=== PATIENT | female | born 1950 | race Caucasian/White ===

== ENCOUNTER 2020-09-27 20:19 | Emergency (ER) | payer MEDICARE, BC ==
[2020-09-27 20:25] VITALS: BP 152/72; PULSE 87
[2020-09-27] MEDS ORDERED: Morphine 4 MG/ML Syringe IM ONE (20:49)
--- NOTE | 2020-09-27 20:49 | EDM.PDOC ---
ED HPI GENERAL MEDICAL PROBLEM - General Chief Complaint: Lower Extremity Injury/Pain Stated Complaint: fall Time Seen by Provider: 09/27/20 20:49 Source of Information: Reports: Patient History Limitations: Reports: No Limitations - History of Present Illness INITIAL COMMENTS - FREE TEXT/NARRATIVE: Patient comes emergency department today from home with complaints of a fall ri ght hand and hip pain. Just prior to arrival the patient was walking with flip- flops sandals on when she was trying to shoe something way with her foot when her flip-flop got stuck on the ground and she fell landing on her right hip and her right hand. She did not hit her head. She has no head neck or back pain. There was no loss of consciousness. It is too painful for her to stand on for her right hip therefore she came to the emergency department. She denies any paresthesias of her lower extremity. She had no symptoms of weakness dizziness lightheadedness palpitations vertigo or syncope prior to falling. She denies any paresthesias of her upper or lower extremities. No change in the functionality of her upper or lower extremity. She does complain of pain primarily of the thumb at the metacarpal region. No paresthesias. She does not take anything for pain prior to arrival. Treatments SENIOR ACCOUNT DIRECTOR: Reports: Acetaminophen, Cold Therapy - Related Data Allergies Allergy/AdvReac Type Severity Reaction Status Date / Time No Known Allergies Allergy Verified 08/04/14 09:39 Home Meds: Home Meds Cholecalciferol (Vitamin D3) [Vitamin D3] 2,000 units PO DAILY 08/03/14 [History] DULoxetine [Cymbalta] 90 mg PO DAILY 08/03/14 [History] Fenofibrate,Micronized [Fenofibrate] 134 mg PO BEDTIME 08/03/14 [History] QUEtiapine [SEROquel] 300 mg PO BEDTIME 08/03/14 [History] Simvastatin 20 mg PO BEDTIME 08/03/14 [History] amLODIPine [Norvasc] 10 mg PO BEDTIME 08/03/14 [History] metFORMIN HCl [Metformin HCl ER] 500 mg PO DAILY 09/27/20 [History] Social & Family History - Tobacco Use Tobacco Use Status *Q: Never Tobacco User Second Hand Smoke Exposure: No - Caffeine Use Caffeine Use: Reports: Coffee, Soda Caffeine Use Comment: 1 dt coke daily, coffee not daily - Recreational Drug Use Recreational Drug Use: No Review of Systems - Review of Systems Review Of Systems: Comprehensive ROS is negative, except as noted in HPI. ED EXAM, GENERAL - Physical Exam Exam: See Below Exam Limited By: No Limitations General Appearance: Alert, WD/WN, No Apparent Distress Eye Exam: Bilateral Eye: EOMI, PERRL Ears: Normal External Exam Nose: Normal Inspection Throat/Mouth: Normal Inspection Head: Atraumatic, Normocephalic Neck: Normal Inspection, Supple, Non-Tender, Full Range of Motion. No: Tender Lateral, Tender Midline Respiratory/Chest: No Respiratory Distress, Lungs Clear, Normal Breath Sounds, Chest Non-Tender Cardiovascular: Normal Peripheral Pulses, Regular Rate, Rhythm Peripheral Pulses: 2+: Radial (L), Radial (R), Posterior Tibial (L), Posterior Tibial (R), Dorsalis Pedis (L), Dorsalis Pedis (R) GI/Abdominal: Normal Bowel Sounds, Soft, Non-Tender, No Distention (Female) Exam: Deferred Rectal (Female) Exam: Deferred Back Exam: Normal Inspection, Full Range of Motion. No: Paraspinal Tenderness, Vertebral Tenderness Extremities: No: Normal Inspection (She has tenderness on the right metacarpal region of the thumb no overt bony deformity bruising swelling ecchymosis. She has tenderness palpation on the right hip pelvis is stable.) Neurological: Alert, Oriented, CN II-XII Intact, Normal Cognition, No Motor/Sensory Deficits Psychiatric: Normal Affect, Normal Mood Skin Exam: Warm, Dry, Intact, Normal Color, No Rash Course - Vital Signs Last Recorded V/S: Last Vital Signs Temp 99.1 F 09/27/20 20:23 Pulse 87 09/27/20 20:23 Resp 20 09/27/20 20:23 BP 152/72 H 09/27/20 20:23 Pulse Ox 100 09/27/20 20:23 - Orders/Labs/Meds Orders: Active Orders 24 hr Category Date Time Status Hand Comp Min 3V Rt [CR] Stat Exams 09/27/20 20:49 Taken Hip Min 2V or 3V w Pelvis Rt [CR] Stat Exams 09/27/20 20:49 Taken Meds: Medications Discontinued Medications Generic Name Dose Route Start Last Admin Trade Name Freq PRN Reason Stop Dose Admin Morphine Sulfate 4 mg 09/27/20 20:49 09/27/20 20:57 Morphine 4 Mg/Ml Syringe IM 09/27/20 20:50 4 mg ONETIME ONE Administration - Radiology Interpretation Free Text/Narrative:: X-ray of the right hip initially reviewed extemporaneously by myself shows some chronic changes of osteoarthritis. Of the right acetabulum. No acute bony abnormality of the femoral neck. No bony abnormality of the pelvis. Radiological review to follow. X-ray of the right hand initially reviewed extemporaneously by myself shows no acute bony abnormality. Radiological review to follow. - Re-Assessments/Exams Free Text/Narrative Re-Assessment/Exam: 09/27/20 21:23 X-rays of right hand and hip and pelvis were ordered. Morphine 4 mg IM. 09/27/20 23:00 The patients pain was much improved after the above therapy. She was able to bear weight. Xray negative on my extemporaneous initial review. Will discharge home at this time with symptomatic management. The patient is comfortable with this plan and her questions answered. Departure - Departure Time of Disposition: 22:28 Disposition: Home, Self-Care 01 Clinical Impression: Right hip pain Sprain of hand, thumb, right Qualifiers: Encounter type: initial encounter Sprain of finger site: unspecified site Quali fied Code(s): S63.601A - Unspecified sprain of right thumb, initial encounter Osteoarthritis of right hip Qualifiers: Osteoarthritis type: unspecified Qualified Code(s): M16.11 - Unilateral primary osteoarthritis, right hip - Discharge Information Instructions: Pain Medicine Instructions, [id number], RICE Therapy for Routine Care of Injuries, [id number] Referrals: Virginia Payne PA [Primary Care Provider] - Forms: ED Department Discharge, ED Return to Work/School Form Additional Instructions: Tylenol and or Ibuprofen as needed for pain. ice to the sore areas. Keep mobile but don't do too much. If pain not controlled with above. Tramadol 1 tablet every 6 hrs with food as needed for pain. 2 dispensed from the ED and RX given to the patient. Return to the ED if new or worsening symptoms. Follow up with PCP in the next week if not improving sooner if worse. Sepsis Event Note (ED) - Evaluation Sepsis Screening Result: No Definite Risk - Focused Exam Vital Signs: Vital Signs Temp Pulse Resp BP Pulse Ox 09/27/20 20:23 99.1 F 87 20 152/72 H 100 - My Orders Last 24 Hours: My Active Orders 09/27/20 20:49 Hand Comp Min 3V Rt [CR] Stat Hip Min 2V or 3V w Pelvis Rt [CR] Stat - Assessment/Plan Last 24 Hours: My Active Orders 09/27/20 20:49 Hand Comp Min 3V Rt [CR] Stat Hip Min 2V or 3V w Pelvis Rt [CR] Stat
[2020-09-27] MEDS ORDERED: traMADol 50 MG Tab PO ONE (22:36)
== END 2020-09-27 23:00 | disposition home or self-care (01) ==
LOC: LL.ED 20:19
DX: S63.601A Unspecified sprain of right thumb, initial encounter (principal); M16.11 Unilateral primary osteoarthritis, right hip; Z79.899 Other long term (current) drug therapy; W18.09XA Striking against other object with subsequent fall, initial encounter
CPT/HCPCS: 73130-RT; 96372; 99283-25; A9270-GY; J2270